=== PATIENT | female | born 1990 | race Caucasian/White ===

== ENCOUNTER 2017-03-25 11:36 | Outpatient (CLI) | payer BC | END 2017-03-25 23:59 | disposition home or self-care (01) | LOC: RAD 11:36 | PROVIDERS: ATTEND Psychiatry & Neurology Neurology | DX: R40.0 Somnolence (principal); Z87.820 Personal history of traumatic brain injury | CPT/HCPCS: 95816 ==

== ENCOUNTER 2017-04-26 04:46 | Outpatient (CLI) | payer BC, MEDICAID | END 2017-04-26 23:59 | disposition home or self-care (01) | LOC: DIABETIC 04:46 | PROVIDERS: ATTEND Nurse Practitioner Family | DX: S06.9X0S Unspecified intracranial injury without loss of consciousness, sequela (principal); K21.9 Gastro-esophageal reflux disease without esophagitis; K29.70 Gastritis, unspecified, without bleeding; K20.9 Esophagitis, unspecified; M25.859 Other specified joint disorders, unspecified hip; Z91.018 Allergy to other foods | CPT/HCPCS: G0108 ==

== ENCOUNTER 2023-04-13 14:19 | Emergency (ER) | payer MEDICARE, MEDICAID ==
[~2023-04-13] VITALS: Ht 175.3 cm; Wt 74.0 kg
[2023-04-13 14:34] VITALS: BP 137/92; PULSE 107; RESP 18; TEMP 98.9; O2SAT 98
[2023-04-13] MEDS: TETanus/Pertussis (Acell)/Diphther VAC/PF (Tdap-Adult) 0.5ml syringe IMVAC ONE (15:20)
[2023-04-13] MEDS: bacitracin 15gm ointment TP ONE (15:45)
== END 2023-04-13 15:53 | disposition home or self-care (01) ==
LOC: ER 14:21
DX: S91.311A Laceration without foreign body, right foot, initial encounter (principal); Z88.8 Allergy status to other drugs, medicaments and biological substances; Z88.1 Allergy status to other antibiotic agents; X58.XXXA Exposure to other specified factors, initial encounter; Y93.89 Activity, other specified; Y92.89 Other specified places as the place of occurrence of the external cause; Y99.8 Other external cause status
CPT/HCPCS: 73630; 90471; 90715; 99283; J7030; A6258

== ENCOUNTER 2023-04-24 14:19 | Outpatient (CLI) | payer MEDICARE, MEDICAID | END 2023-04-24 23:59 | disposition home or self-care (01) | LOC: RAD 14:19 | PROVIDERS: ATTEND General Practice | DX: R13.12 Dysphagia, oropharyngeal phase (principal); S06.0X9S Concussion with loss of consciousness of unspecified duration, sequela; X58.XXXS Exposure to other specified factors, sequela | CPT/HCPCS: 74230 ==